=== PATIENT | male | born 1995 | race Caucasian/White ===

== ENCOUNTER → 2017-04-20 | Outpatient (CLI) | payer BC ==
[~2017-04-20] MED LIST: /ACETCOD2T PO; ALBU1.25 INH; BENA25CA PO; FLEX10TA2 PO; LEVO750T PO; NORCOTAB PO; PREV30CA6 PO; PROM25TA PO; TYLE325T5 PO; VENTAER INH; [UNRECOGNIZED DRUG - CODE] PO
--- NOTE | 2017-04-20 11:36 | REP ---
Clinical: Trauma. Technique: AP, lateral, bilateral oblique views right hand . Findings: The osseous structures and joint spaces are intact and normal. There is no evidence for acute fracture or dislocation. Surrounding soft tissues are unremarkable. No subcutaneous emphysema or radiodense foreign body. Impression: No acute fracture or dislocation. Signed by Edy Freeman MD 04/20/2017 11:27 A
== END ==
LOC: M ADAMS 10:38
PROVIDERS: ATTEND Physician Assistant
DX: M79.641 Pain in right hand (principal)

== ENCOUNTER → 2017-09-05 | Outpatient (REF) | payer BC | LOC: M SFHCLERA 18:40 | PROVIDERS: ATTEND Nurse Practitioner Family | DX: R11.11 Vomiting without nausea (principal) ==

== ENCOUNTER 2020-04-17 08:38 | Emergency (ER) | payer BC, SELFPAY ==
[~2020-04-17] VITALS: Ht 177.8 cm; Wt 71.1 kg
[~2020-04-17 08:38] MED LIST changes: -/ACETCOD2T PO; +ACET1TAB15 PO; +PROM-190 PO; -PROM25TA PO
[2020-04-17] MEDS ORDERED: PROT1TAB2 PO (08:46)
[2020-04-17] MEDS ORDERED: methylPREDNISolone INJ 125 MG/2 ML VIAL (J2930) IV ONE (09:30)
[2020-04-17] MEDS ORDERED: CYCLOBENZAPRINE 10MG TABLET PO ONE (09:30)
[2020-04-17 09:55] LABS: BASO # 0.1 10^3/uL (0.0-0.2); BASO % 0.8 % (0.0-1.0); EOS # 0.1 10^3/uL (0.0-0.5); EOS % 0.9 % (0.0-3.0); HEMATOCRIT 51.9 % (42.0-52.0); HEMOGLOBIN 17.1 g/dl (13.5-17.5); LYMPH # 2.7 10^3/uL (1.5-5.0); LYMPH % 17.7 % (24.0-44.0); MEAN CORPUSCULAR HEMOGLOBIN 28.2 pg (27.0-33.0); MEAN CORPUSCULAR HGB CONC 32.9 g/dl (32.0-36.5); MEAN CORPUSCULAR VOLUME 85.5 fl (80.0-96.0); MONO % 6.5 % (0.0-5.0); NEUTROPHILS # 11.2 10^3/uL (1.5-8.5); NEUTROPHILS % 73.5 % (36.0-66.0); PLATELET COUNT, AUTOMATED 306 10^3/uL (150-450); RED BLOOD COUNT 6.07 10^6/uL (4.30-6.10); WHITE BLOOD COUNT 15.3 10^3/uL (4.0-10.0)
[2020-04-17] MEDS ORDERED: PERCOCET 5MG/325MG TAB PO ONE (11:00)
[2020-04-17] MEDS ORDERED: LIDOCAINE 5% (LIDODERM) PATCH TD ONE (11:00)
[2020-04-17] MEDS ORDERED: PRED20TA PO (11:36)
[2020-04-17] MEDS ORDERED: LIDO5DIS41 TOP (11:37)
[2020-04-17 11:40] VITALS: BP 136/79
--- NOTE | 2020-04-17 12:00 | REP ---
CT LUMBAR SPINE WITHOUT CONTRAST: HISTORY: Low back pain. History of lymphoma. Comparison is made with MRI study of the lumbar spine from September 05, 2016. TECHNIQUE: Helical scanning is acquired. Axial 4 mm images are reformatted. Coronal and sagittal MPR images are generated. CT FINDINGS: The patient is status post laminectomy at L5 and S1 and bilateral transpedicle screw posterior element fixation across the L5-S1 level. There is an interbody fusion device in the disc space at L5-S1. There is a subtle 3 mm L5-S1 spondylolisthesis. 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 There are reactive sclerotic changes on either side of the L5-S1 disc. There is a fairly large Schmorl's node in the superior endplate of L4. This measures 10 mm. It is larger than it was on the August 2016 prior study although it is not new. There is no evidence of bony destructive lesion. Vertebral body heights are preserved. Alignment is otherwise normal. No paravertebral or retroperitoneal mass or adenopathy is observed. There is diffuse bulging of the posterior disc margin at L3-4. This appears to be unchanged. IMPRESSION: Status post laminectomy and fusion L5 and S1. Schmorl's node at the superior endplate of L4. Diffuse L3-4 disc bulging and slight disc space narrowing. Spinal stenosis or neural foraminal narrowing is seen. Electronically Signed by Adilson Murphy MD 04/17/2020 05:57 P
--- NOTE | 2020-04-17 20:14 | ED PDOC ---
Post-Departure Follow-Up dr hadley faxed formal report of ct ls spine for fu Avani Rae MD April 17, 2020 20:14
[2020-04-17] MEDS ORDERED: **NOTE PATIENT COMMENT** MISC XX SCH (21:00)
== END 2020-04-17 11:48 | disposition home or self-care (01) ==
LOC: M ED 08:38
DX: M51.46 Schmorl's nodes, lumbar region (principal); M51.27 Other intervertebral disc displacement, lumbosacral region; M48.00 Spinal stenosis, site unspecified; J45.909 Unspecified asthma, uncomplicated; K21.9 Gastro-esophageal reflux disease without esophagitis; F33.9 Major depressive disorder, recurrent, unspecified; F41.9 Anxiety disorder, unspecified; C85.90 Non-Hodgkin lymphoma, unspecified, unspecified site; Z79.899 Other long term (current) drug therapy; Z88.1 Allergy status to other antibiotic agents; Z88.2 Allergy status to sulfonamides; F17.210 Nicotine dependence, cigarettes, uncomplicated
CPT/HCPCS: 72131; 80047; 85025; 96374; 99284; J2930